=== PATIENT | female | born 1995 | race Caucasian/White ===

== ENCOUNTER 2021-08-23 14:07 | Emergency (ER) | payer BC ==
[~2021-08-23] VITALS: Ht 165.1 cm; Wt 63.0 kg
[2021-08-23 14:40] VITALS: BP 109/68
--- NOTE | 2021-08-23 15:13 | RAD ---
Left elbow 3 views. HISTORY: Fall left evening, injury 3 views were taken of the left elbow. There is slight prominence of the fat pads. I do not identify a n acute fracture. Follow-up study could be of benefit to exclude an occult injury. IMPRESSION: 1. Mild prominence of fat pads at the elbow. 2. A fracture is not identified at this time but follow-up could be of benefit to exclude an occult i njury. Electronically signed by: Forrest Lund MD (08/23/2021 3:10 PM) [facility]
--- NOTE | 2021-08-23 15:46 | PHYS DOC ---
Past History Past Surgical History: No Surgical History General Adult EDM: Chief Complaint: ELBOW PROBLEM HPI: HPI: Patient is a 26-year-old female presents after falling down her staircase and landing on her left elbow. Patient is reporting pain and swelling. Patient was seen in urgent care and given an arm sling but patient reports she is still having swelling and pain. Denies taking anything at home for pain. Pain is worse with extending her arm. Sensation of range of motion are intact. Denies medical history. Review of Systems: Review of Systems: ROS At least 10 ROS systems have been reviewed and are negative except as documented in the HPI. General: Negative except as outlined in HPI above. Skin: Negative except as outlined in HPI above. HEENT: Negative except as outlined in HPI above. Neck: Negative except as outlined in HPI above. Respiratory: Negative except as outlined in HPI above.. Cardiovascular: Negative except as outlined in HPI above. Abdomen: Negative except as outlined in HPI above. : Negative except as outlined in HPI above. Back/MSK: Negative except as outlined in HPI above. Neuro: Negative except as outlined in HPI above. Psych: Negative except as outlined in HPI above. Allergies: Allergies: Allergies Coded Allergies Type Severity Reaction Last Updated Verified No Known Drug Allergies 08/23/21 No Physical Exam: PE: Constitutional: Well developed, well nourished, no acute distress, non-toxic appearance. [] HENT: Normocephalic, atraumatic, bilateral external ears normal, oropharynx moist, no oral exudates, nose normal. [] Eyes: PERRLA, conjunctiva normal, no discharge. [] Neck: Normal range of motion, no tenderness, supple, no stridor. [] Cardiovascular:Heart rate regular rhythm, no murmur [] Lungs & Thorax: Bilateral breath sounds clear to auscultation [] Abdomen: Bowel sounds normal, soft, no tenderness, no masses, no pulsatile masses. [] Skin: Warm, dry, no erythema, no rash. [] Back: No tenderness, no CVA tenderness. [] Extremities: Left arm tenderness, swelling, pain with extension. Neurologic: Alert and oriented X 3, normal motor function, normal sensory function, no focal deficits noted. [] Psychologic: Affect normal, judgement normal, mood normal. [] Current Patient Data: Vital Signs: Vital Signs Date Time Temp Pulse Resp B/P (MAP) Pulse Ox O2 Delivery O2 Flow Rate FiO2 08/23/21 14:40 97.9 79 18 109/68 (82) 100 Room Air EKG: EKG: [] Radiology/Procedures: Radiology/Procedures: []Left elbow 3 views. HISTORY: Fall left evening, injury 3 views were taken of the left elbow. There is slight prominence of the fat pads. I do not identify an acute fracture. Follow-up study could be of benefit to exclude an occult injury. IMPRESSION: 1. Mild prominence of fat pads at the elbow. 2. A fracture is not identified at this time but follow-up could be of benefit to exclude an occult injury. Electronically signed by: Forrest Lund MD (08/23/2021 3:10 PM) [facility] Heart Score: C/O Chest Pain: No Risk Factors: Risk Factors: DM, Current or recent (<one month) smoker, HTN, HLP, family history of CAD, obesity. Risk Scores: Score 0 - 3: 2.5% MACE over next 6 weeks - Discharge Home Score 4 - 6: 20.3% MACE over next 6 weeks - Admit for Clinical Observation Score 7 - 10: 72.7% MACE over next 6 weeks - Early Invasive Strategies Course & Med Decision Making: Course & Med Decision Making Pertinent Labs and Imaging studies reviewed. (See chart for details) [] 26-year-old female presents after slipping and falling on her right elbow. X-ray of right elbow was negative for fracture. There was moderate amount of swelling. Advised patient she would need to follow back up in 5 to 7 days and have repeat imaging done due to swelling. Ibuprofen at home for discomfort. Educated on RICE. Patient has a arm sling that she received from urgent care. Patient's appreciative of and okay with discharge plan. Vibha Disclaimer: Vibha Disclaimer: This electronic medical record was generated, in whole or in part, using a voice recognition dictation system. Departure Departure: Impression: Primary Impression: Elbow contusion Qualified Codes: S50.01XA - Contusion of right elbow, initial encounter Disposition: HOME / SELF CARE / HOMELESS Condition: STABLE Referrals: PCP,NO (PCP) Patient Instructions: Elbow Contusion, [id number] Additional Instructions: You were seen emergency room for elbow pain. X-ray was negative. Due to the swelling we may not be able to see a fracture at this time. You should follow- up in 5 to 7 days to have a repeat image done after swelling is gone down. Rest, use ice to the area, elevate to help with swelling and pain. Ibuprofen and Tylenol for discomfort. Use the arm sling you were provided from urgent care. Return to the emergency room if you have worsening symptoms or concerns. EMERGENCY DEPARTMENT GENERAL DISCHARGE INSTRUCTIONS Thank you for coming to [facility] (ED) today and trusting us with you care. We trust that you had a positivie experience in our Emergency Department. If you wish to speak to the department management, you may call the director at [phone]. YOUR FOLLOW UP INSTRUCTIONS ARE FOLLOWS: 1. Do you have a private Doctor? If you do not have a private doctor, please ask for a resource list of physicians or clinics that may be able to assist you with follow up care. 2. The Emergency Physician has interpreted your x-rays. The X-Ray specialist will also review them. If there is a change in the findings, you will be notified in 48 hours when at all possible. 3. A lab test or culture has been done, your results will be reviewed and you will be notified if you need a change in treatment. ADDITIONAL INSTRUCTIONS AND INFORMATION: 1. Your care today has been supervised by a physician who is specially trained in emergency care. Many problems require more than one evaluation for a complete diagnosis and treatment. We recommend that you schedule your follow up appointment as recommended to ensure complete treatment of you illness or injury. If you are unable to obtain follow up care and continue to have a problem, or if your condition worsens, we recommend that you return to the ED. 2. We are not able to safely determine your condition over the phone nor are we able to give sound medical advice over the phone. For these safety reasons, if you call for medical advice we will ask you to come to the ED for further evaluation. 3. If you have any questions regarding these discharge instructions please call the ED at [phone]. SAFETY INFORMATION: In the interest of safety, wellness, and injury prevention; we encourage you to wear your sealbelt, if you smoke; quite smoking, and we encourage family to use a protective helmet for bicycling and other sporting events that present an increased risk for head injury. IF YOUR SYMPTOMS WORSEN OR NEW SYMPTOMS DEVELOP, OR YOU HAVE CONCERNS ABOUT YOUR CONDITION; OR IF YOUR CONDITION WORSENS WHILE YOU ARE WAITING FOR YOUR FOLLOW UP APPOINTMENT; EITHER CONTACT YOUR PRIMARY CARE DOCTOR, THE PHYSICIAN WHOSE NAME AND NUMBER YOU WERE GIVEN, OR RETURN TO THE ED IMMEDIATELY. KARTHIKEYAN AUGUSTIN APRN Aug 23, 2021 15:46
== END 2021-08-23 16:21 | disposition home or self-care (01) ==
LOC: ER 14:07
DX: S50.01XA Contusion of right elbow, initial encounter (principal); W10.8XXA Fall (on) (from) other stairs and steps, initial encounter; Y93.89 Activity, other specified; Y92.89 Other specified places as the place of occurrence of the external cause; Y99.8 Other external cause status
CPT/HCPCS: 73080; 99283